=== PATIENT | female | born 1995 | race Two or more races ===

== ENCOUNTER 2022-11-06 10:43 | Emergency (ER) | payer MEDICAID ==
[~2022-11-06] VITALS: Ht 167.6 cm; Wt 95.5 kg
[2022-11-06 12:54] VITALS: BP 123/71
[2022-11-06] MEDS ORDERED: ACET1CAP14 PO (13:09)
[2022-11-06] MEDS ORDERED: CYCL-839 PO (13:09)
[2022-11-06] MEDS ORDERED: KETOROLAC TROMETH 30 MG/ML 1ML VIAL IM ONE (13:15)
== END 2022-11-06 13:45 | disposition home or self-care (01) ==
LOC: ER 10:43
DX: G44.209 Tension-type headache, unspecified, not intractable (principal); J45.909 Unspecified asthma, uncomplicated
CPT/HCPCS: 70450; 96372; 99285; J1885

== ENCOUNTER 2025-08-02 12:07 | Emergency (ER) | payer MEDICAID ==
[~2025-08-02] VITALS: Ht 167.6 cm; Wt 100.0 kg
[~2025-08-02 12:07] MED LIST: ACET1CAP14 PO; CYCL-839 PO
[2025-08-02] MEDS: KETOROLAC TROMETH 60MG/2ML VIAL IM ONE (13:28)
--- NOTE | 2025-08-02 13:30 | ED.PDOC ---
Musculoskeletal HPI Comments 29-year-old female who presents to the ED for chief complaint of extremity pain. Patient states for the past few months she has been having left ankle pain. Patient states she stands and walks a lot for work and states she has been having increased left ankle pain and swelling. Patient states she saw PCP and had x-ray of the left ankle and was referred to business employment specialist for evaluation. Patient states at specialist evaluation x-ray of left ankle from PCP referral was improperly taken and the patient needs another x-ray done and another referral for a specialist is needed. Patient states since she has been having increased pain and swelling to the left ankle and came to the ED for evaluation. Patient in the ED otherwise denies any new injury or trauma to the left ankle. Patient in the ED otherwise able to ambulate. The patient denies any other symptoms at this time. Chief Complaint: Lower Extremity Time Seen by MD: 13:27 Primary Care Provider: [facility] Reviewed Notes: Medications, Allergies Allergies: Coded Allergies: NO KNOWN ALLERGIES (Unverified , 11/06/22) Home Meds Active Scripts Cyclobenzaprine Hcl (Cyclobenzaprine Hcl) 10 Mg Tab, 10 MG PO Q8HPRN PRN, #10 TAB 0 Refills Prov:[facility] 11/06/22 Acetaminophen (Tylenol) 325 Mg Cap, 325 MG PO Q4HPRN PRN, #30 CAP 0 Refills Take 1-2 caps po q4h prn for pain Prov:[facility]RE[facility] 11/06/22 Information Source: Patient, Relative (Mother) Mode of Arrival: Ambulatory Brought in by: Mother Past Medical History PAST MEDICAL HISTORY: Asthma Surgical History: Denies all surgeries [employer]CR[employer]OM [employer]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 Family History Family History: Reviewed,noncontributory to illness Social History Smoker: Non-Smoker Alcohol: Denies ETOH Use Drugs: Denies Drug Use Lives In: Home Constitutional: denies: chills, diaphoresis, fatigue, fever, malaise, sweats, weakness, others EENTM: denies: blurred vision, double vision, ear bleeding, ear discharge, ear drainage, ear pain, ear ringing, eye pain, eye redness, hearing loss, mouth pain, mouth swelling, nasal discharge, nose bleeding, nose congestion, nose pain, photophobia, tearing, throat pain, throat swelling, voice changes, others Respiratory: denies: cough, hemoptysis, orthopnea, SOB at rest, shortness of breath, SOB with excertion, stridor, wheezing, others Cardiovascular: denies: chest pain, dizzy spells, diaphoresis, Dyspnea on exertion, edema, irregular heart beat, left arm pain, lightheadedness, palpitations, PND, syncope, others Gastrointestinal: denies: abdomen distended, abdominal pain, blood streaked bowels, constipated, diarrhea, dysphagia, difficulty swallowing, hematemesis, melena, nausea, poor appetite, poor fluid intake, rectal bleeding, rectal pain, vomiting, others Genitourinary: denies: abnormal vagina bleeding, burning, dyspareunia, dysuria, flank pain, frequency, hematuria, incontinence, pain, , vagina discharge, urgency, others Neurological: denies: dizziness, fainting, headache, left sided numbness, left sided weakness, numbness, paresthesia, pre-existing deficit, right sided numbness, right sided weakness, seizure, speech problems, tingling, tremors, weakness, others Musculoskeletal: reports: joint pain (Left ankle), joint swelling (Left ankle); denies: back pain, gout, muscle pain, muscle stiffness, neck pain, others Integumetry: denies: bruises, change in color, change in hair/nails, dryness, laceration, lesions, lumps, rash, wounds, others Allergic/Immunocompromised: denies: Difficulty Healing, Frequent Infections, Hives, Itching, others Hematologic/Lymphatic: denies: anemia, blood clots, easy bleeding, easy bruising, swollen glands, others Endocrine: denies: excessive hunger, excessive sweating, excessive thirst, excessive urination, flushing, intolerance to cold, intolerance to heat, unexplained weight gain, unexplained weight loss, others Psychiatric: denies: anxiety, bipolar disorder, depression, hopeless, panic disorder, schizophrenia, sleepless, suicidal, others All Other Systems: Reviewed and Negative Was a procedure done? Was a procedure done?: No Differential Diagnosis EXT Differential Diagnosis: Fracture, Sprain, Contusion, Strain X-Ray, Labs, Meds, VS Vital Signs Date Time Temp Pulse Resp B/P (MAP) Pulse Ox O2 Delivery O2 Flow Rate FiO2 08/02/25 12:08 99.8 64 18 126/83 98 99.8 Current Medications Medications (Trade) Dose Ordered Sig/Aracely Route Start Time Stop Time Status Last Admin Ketorolac Tromethamine (Toradol Injection) 60 mg ONCE ONCE IM 08/02/25 13:15 08/02/25 13:16 DC 08/02/25 13:28 X-Ray, Labs, Meds, VS Comment Patient arrives alert and oriented, ABC's intact, afebrile, vital signs stable, saturating well in room air Diagnostic imaging ordered by me and results interpreted by radiology : Labs in the ED showed (pertinent+ and then pertinent-) Patient was given:_. Tolerated medications with no adverse reaction. Additional MDM Review of External, Non-ED records: External records reviewed. Discussion with independent historian (EMS, family) history obtained from the patient/parents (if applicable) at bedside Chronic conditions affecting care: None Social determinants of health affecting care: None Consideration of admission (observation or admission): I considered escalation of care to admission for this patient, however given the reassuring workup, the patient is safe for outpatient management. Discussion with the Radiology: No Tests considered but not performed: Prescription medication considered but not given: 12 lead EKG interpretation: Time of 1ST Reevaluation: 14:00 Reevaluation 1ST: Unchanged Patient Education/Counseling: Diagnosis, Treatment Family Education/Counseling: No Family Present Departure 1 Departure Time of Disposition: 14:06 Impression: Primary Impression: Left ankle pain Qualified Codes: M25.572 - Pain in left ankle and joints of left foot Disposition: 01 HOME / SELF CARE / HOMELESS Condition: Fair Additional Instructions: Discharge Note: Continue on your medications. Do not drive when taking narcotics. Drink plenty of fluids. Follow up with your primary Dr. No weight bearing. Take your prescriptions as ordered. If your condition becomes worse call and follow up with your primary Dr. for instructions or return to the ER if needed. Thank you for visiting [facility]. e-Prescriptions Naproxen (Naproxen) 375 Mg Tab 1 TAB PO BIDPC, #10 TAB 0 Refills Prov: SHEBAJYOTHI NP 08/02/25 Critical Care Note Critical Care Time?: No Stability Stability form required: No Heart Score Heart Score: Heart Score Response (Comments) Value History N/A 0 EKG N/A 0 Age N/A 0 Risk Factors N/A 0 Troponin N/A 0 Total 0 I personally scribed for JYOTHI SCRUGGS NP ([email or web address]) on 08/02/25 at 13:30. Electronically submitted by Carlos Connor ([email or web address]). JYOTHI SCRUGGS NP Aug 02, 2025 13:30
--- NOTE | 2025-08-02 13:48 | DVH ---
XY L ANKLE 3 VIEW, INDICATION: r/o fracture lateral mal. TECHNICAL DATA:Frontal , oblique and lateral views were obtained of the left ankle. COMPARISON: IH-X-RAY, FOOT LT on DOS: 04/29/25, IH-X-RAY, FOOT RT on DOS: 04/29/25 FINDINGS: No fracture is identified. Joint spaces are maintained. Alignment is anatomic. Soft tissues are mil dly swollen. IMPRESSION: No acute fracture or dislocation of the left ankle.
[2025-08-02] MEDS ORDERED: NAPR-957 PO (14:07)
[2025-08-02 14:19] VITALS: BP 122/76; PULSE 68; RESP 18; TEMP 99.4; O2SAT 99
== END 2025-08-02 14:41 | disposition home or self-care (01) ==
LOC: ER 12:07
DX: M25.572 Pain in left ankle and joints of left foot (principal); M79.89 Other specified soft tissue disorders; J45.909 Unspecified asthma, uncomplicated
CPT/HCPCS: 73610; 96372; 99283; J1885